=== PATIENT | male | born 1955 | race Caucasian/White ===

== ENCOUNTER → 2020-01-11 | Outpatient (CLI) | payer OTHER ==
[~2020-01-11] MED LIST: INHALER; MASOPHEN325 MG PO
== END ==
LOC: LAB 15:07
PROVIDERS: ATTEND Nurse Practitioner
DX: U07.1 COVID-19 (principal)

== ENCOUNTER 2020-01-18 00:22 | Inpatient (IN) | payer OTHER ==
[~2020-01-18] VITALS: Ht 172.7 cm; Wt 74.4 kg
[2020-01-18 00:23] VITALS: BP 111/73
[2020-01-18] MEDS ORDERED: MASOPHEN325 MG PO (00:30)
[2020-01-18] MEDS ORDERED: INHALER (00:30)
[2020-01-18 00:56] LABS: BE(vivo) -0.5 mmol/L (-2 to +3); HCO3 21.4 mmol/L (22.0-26.0); PCO2 28.4 mmHg (35.0-45.0); PO2 57.1 mmHg (80.0-100.0); pH 7.495 (7.360-7.450); sO2 92.3 % (92.0-98.0)
[2020-01-18 01:56] LABS: ANION GAP 10 mmol/L (7-16); BUN 22 mg/dL (7-18); CALCIUM 8.9 mg/dL (8.5-10.1); CHLORIDE 98 mmol/L (98-107); CO2 26 mmol/L (21-32); CREATININE 1.2 mg/dL (0.7-1.3); GLUCOSE 111 mg/dL (74-106); POTASSIUM 4.3 mmol/L (3.5-5.1); SODIUM 134 mmol/L (136-145)
[2020-01-18 01:59] LABS: ABSOLUTE NEUTROPHILS 11.9 thou/uL (1.4-8.2); BASOPHILS 0.1 % (0.0-2.0); HEMATOCRIT 41.5 % (42.0-52.0); HEMOGLOBIN 13.9 gm/dL (14.0-18.0); LYMPHOCYTES 1.8 % (24.0-44.0); MCH 31.6 pg (26.0-34.0); MCHC 33.5 g/dL (28.0-37.0); MCV 94.3 fL (80.0-100.0); MONOCYTES 2.2 % (1.0-8.0); PLATELET COUNT 254 thou/uL (150-400); POLYS 95.9 % (36.0-66.0); RDW 13.6 % (10.5-14.5); WBC 12.4 thou/uL (4.0-11.0)
[2020-01-18 02:04] LABS: APTT 33.4 Seconds (24.5-32.8); PROTIME 10.7 Seconds (9.3-11.4)
[2020-01-18 02:06] LABS: ALBUMIN 2.7 g/dL (3.4-5.0); SGOT 52 U/L (15-37); SGPT 52 U/L (30-65); TOTAL BILIRUBIN 1.1 mg/dL (0.2-1.0); TROPONIN-I <0.06 ng/mL (<0.06)
[2020-01-18 03:01] VITALS: BP 111/73
[2020-01-18 04:37] VITALS: BP 111/73
--- NOTE | 2020-01-18 07:00 | NUR ---
ASSUMED CARE OF PT FROM ER AT 0430HRS. PT AOX4 AND LETS NEEDS BE KNOWN. FALL PRECAUTION IN PLACE. PT WAS ORIENTED TO THE ROOM AND UNIT. PT WAS ABLE TO ANSWER ALL ADMISSION RELATED QUESTIONS AND PROVIDE VERBAL CONSENT. PT RUNS SR/ST ON TELE. PT ON HIGH FLOW NC AND SATS 95%. VSS AND NO S/S OF ACUTE DISTRESS. ORDERS RECEIVED AND STARTED. WILL CONTINUE TO MONITOR.
[2020-01-18 09:03] VITALS: BP 132/75
--- NOTE | 2020-01-18 12:12 | NUR ---
Patient admits with SOA/COVID positive . Patient and live in [place]. Patient commutes for work to [place]. Patient was home for holiday and both he and tested positive for COVID. 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 reports patients PCP is Dr Lukas Bustos [facility] in [place], p f. Updated face sheet as phone numbers were not accurate. wanted son Arcadio added [phone]. Gave Rn PCP information if needed past medical hx information. Patient currently on high liter flow of oxygen. reports her PCP is Dr Rodriguez. Casemgt following for dc planning.
[2020-01-18 13:11] VITALS: BP 146/73
--- NOTE | 2020-01-18 17:12 | NUR ---
RN ASSUMED PT'S CARE AT 0700AM, PT IS A&OX3, PT NEEDS HIGH FLOW H2 45L/MIN TO KEEP O2 >91%,PT STARTS FIRST DOSE IV REMDESIVIR AND IV ABX, DR CAT AND CARLOS A HAVE CONSULT, DR LIVINGSTON HAS SEEING PT, PT'S O2SAT HAS DECREASE WITH ACTIVITIES, RN HAS UPDATED PT'S INFORMATION .
[2020-01-18 20:52] VITALS: BP 128/78
[2020-01-19] VITALS (7 sets, daily range): BP systolic 115–137; BP diastolic 58–84
--- NOTE | 2020-01-19 01:23 | NUR ---
PT ALERT AND ORIENTED X4. VSS LOW GRADE TEMPS 100.3. SATS 93% CURRENTLY ON OPTIFLO. MRSA SAMPLE SENT TO LAB. T&C DONE FOR CONVALESENT PLASMA. INFORMED PT OF NEED FOR SPUTUM AND URINE SAMPLE. PT IS RESTING QUIETLY PRSENTLY RR 24. WILL CONTINUE TO MONITOR PT FOR CHANGES.
[2020-01-19 04:17] LABS: URINE BILIRUBIN NEGATIVE (Negative); URINE BLOOD NEGATIVE (Negative); URINE CLARITY CLEAR; URINE COLOR YELLOW; URINE GLUCOSE-RANDOM* NEGATIVE (Negative); URINE KETONES NEGATIVE (Negative); URINE LEUKOCYTES-REFLEX TRACE (Negative); URINE NITRITE-REFLEX NEGATIVE (Negative); URINE PROTEIN (DIPSTICK) TRACE (Negative); URINE UROBILINOGEN 0.2 E.U./dl (0.2-1.0)
[2020-01-19 04:38] LABS: HEMATOCRIT 42.7 % (42.0-52.0); HEMOGLOBIN 14.6 gm/dL (14.0-18.0); MCH 32.3 pg (26.0-34.0); MCHC 34.1 g/dL (28.0-37.0); MCV 94.8 fL (80.0-100.0); RBC 4.51 mil/uL (4.50-6.00); RDW 13.8 % (10.5-14.5); WBC 10.7 thou/uL (4.0-11.0)
[2020-01-19 04:39] LABS: PROTIME 10.5 Seconds (9.3-11.4)
[2020-01-19 04:44] LABS: FIBRINOGEN 611.5 mg/dL (210-360)
[2020-01-19 04:52] LABS: ALBUMIN 2.5 g/dL (3.4-5.0); CALCIUM 8.9 mg/dL (8.5-10.1); DIRECT BILIRUBIN 0.2 mg/dL (<0.1-0.2); PHOSPHORUS 2.9 mg/dL (2.5-4.9); POTASSIUM 3.8 mmol/L (3.5-5.1); TOTAL BILIRUBIN 0.6 mg/dL (0.2-1.0)
--- NOTE | 2020-01-19 06:50 | NUR ---
PT VERY ANXIOUS LAST NIGHT. PT'S SON CALLED AT DESK AND STATED HIS MOTHER SAID HIS DAD WAS GOING TO BE INTUBATED. EXPLAINED TO FAMILY THIS WAS A POSSIBILITY BUT PT WAS MAINTAINING SATS 93-94 ON LF 60 AND FIO2 95% ON OPTIFLO. RT CAME TO TALK WITH PT. PT STATED IT WAS MORE DIFFICULT FOR HIM TO BREATHE TONIGHT. PT REFUSED TO BE PLACED ON BIPAP FOR REST. TYLENOL GIVEN FOR GENERALIZED DISCOMFORT. PT SLEPT SHORTLY AFTER. CONVALESENT PLASMA STARTED. NO REACTION NOTED PRESENTLY.
--- NOTE | 2020-01-19 16:35 | NUR ---
RN ASSUMED PT'S CARE AT 0700AM, PT IS A&OX3, BUT PT IS ANXIETY AT TIME, PT WAS ON HIGH - FLOW O2 60L/MIN/NC TO KEEP 02SAT AT 92%, BUT PT HAS DESAT AT 84-88% WITH ACTIVIES, SO PT STARTS BIPAP WITH O2 100% AT 1540PM TO KEEP O2SAT 93-96%, PT'S SOB HAS IMPROVED, PT IS CONTINUING IV ABX AND REMDESIVIR, RN HAS UPDATED PT'S IMFORMATION. WE WILL KEEP EYE ON THE PT.
--- NOTE | 2020-01-20 00:30 | NUR ---
PT ALERT AND ORIENTED X4. VSS LOW GRADE TEMPS BETTER THAN YESTERDAY. LUNGS SOUND DIMINISHED. RT 24-28 OCCASSIONALLY WILL DESAT T0 89% IF BIPAP OFF FOR MEDS OR ORAL CARE. TYLENOL GIVEN FOR GENERALIZED DISCOMFORT. PT STATES HE'S FELLING BETTER WITH BIBPAP. SATS 93-96% ON BIPAP WITH 100% FIO2. WILL CONTINUE TO MONITOR PT FOR CHANGES.
[2020-01-20 04:54] LABS: HEMATOCRIT 42.8 % (42.0-52.0); HEMOGLOBIN 14.2 gm/dL (14.0-18.0); MCH 31.6 pg (26.0-34.0); MCHC 33.2 g/dL (28.0-37.0); RBC 4.51 mil/uL (4.50-6.00); RDW 13.8 % (10.5-14.5); WBC 12.1 thou/uL (4.0-11.0)
[2020-01-20 05:02] LABS: ALBUMIN 2.5 g/dL (3.4-5.0); CALCIUM 8.9 mg/dL (8.5-10.1); CREATININE 0.9 mg/dL (0.7-1.3); DIRECT BILIRUBIN 0.2 mg/dL (<0.1-0.2); PHOSPHORUS 2.6 mg/dL (2.5-4.9); POTASSIUM 3.8 mmol/L (3.5-5.1); TOTAL BILIRUBIN 0.6 mg/dL (0.2-1.0); TOTAL PROTEIN 6.9 g/dL (6.4-8.2)
[2020-01-20 05:12] VITALS: BP 132/87
--- NOTE | 2020-01-20 06:39 | NUR ---
VSS AFEBRILE THIS AM. SATS 94% ON BIPAP DESATS TO 70'S WITHOUT BIPAP WHILE DOING ORAL CARE OR PT BLOWING NOSE ETC. PT STATED HE IS FEELING BETTER. PROGRESSING SLOWLY TOWARDS D/C GOALS.
[2020-01-20 09:00] VITALS: BP 128/75
[2020-01-20 12:43] VITALS: BP 119/72
[2020-01-20 16:46] VITALS: BP 112/72
[2020-01-20 17:19] VITALS: BP 112/72
--- NOTE | 2020-01-20 17:54 | NUR ---
RN ASSUMED PT'S CARE AT 0700AM, PT IS A&OX3, PT IS CONTINUING IV ABX, PT IS OF BIPAP ABOT 4.5 HR ,PT IS ON HIGH-FLOW O2 60L/NC 93% TO KEEP O2 SAT ABOUT 92%, BUT PT IS DESAT WITH PT'S ACTIVITIES, PT IS BACK TO BIPAP AT 1700PM, PT HAS ANXIETY AT TIME, PT'S VS ARE STABLE, PT GETS UP TO BSC WITH ASSIST, PT DENIES PAIN AND N/V AT THIS TIME.
[2020-01-20 21:31] VITALS: BP 124/75
[2020-01-21 01:41] VITALS: BP 117/56
[2020-01-21 04:34] VITALS: BP 114/58
[2020-01-21 05:00] LABS: INR 1.1; PROTIME 11.4 Seconds (9.3-11.4)
[2020-01-21 05:05] LABS: FIBRINOGEN 479.4 mg/dL (210-360)
[2020-01-21 05:16] LABS: ABSOLUTE NEUTROPHILS 10.2 thou/uL (1.4-8.2); BASOPHILS 0.1 % (0.0-2.0); HEMATOCRIT 41.4 % (42.0-52.0); HEMOGLOBIN 13.5 gm/dL (14.0-18.0); LYMPHOCYTES 2.1 % (24.0-44.0); MCH 31.2 pg (26.0-34.0); MCHC 32.7 g/dL (28.0-37.0); MCV 95.5 fL (80.0-100.0); MONOCYTES 7.8 % (1.0-8.0); PLATELET COUNT 344 thou/uL (150-400); RBC 4.34 mil/uL (4.50-6.00); RDW 13.9 % (10.5-14.5); WBC 11.3 thou/uL (4.0-11.0)
[2020-01-21 05:33] LABS: ALBUMIN 2.5 g/dL (3.4-5.0); CALCIUM 8.6 mg/dL (8.5-10.1); DIRECT BILIRUBIN 0.2 mg/dL (<0.1-0.2); POTASSIUM 4.3 mmol/L (3.5-5.1); TOTAL BILIRUBIN 0.6 mg/dL (0.2-1.0); TOTAL PROTEIN 6.5 g/dL (6.4-8.2)
--- NOTE | 2020-01-21 07:19 | NUR ---
Received pt. on BIPAP at 100% at beginning of shift.He has several questions as well as son that has been addressed. Reassurance given .Dr. Robbie Dominguez also spoke with pt. He gets anxious and stayed awake till late. Encouraged prone position and explained importance. He did agree to it and slept fair. Maintaining O2 sat in the mid 90's when relax then low 90's when awake. Resp rate 24 then 28 when anxious. He gets short of breath with exertion and desats easily.Cont. on. enhanced precaution , afebrile. Son called last night to get an update. Will cont. to monitor.
[2020-01-21 09:04] VITALS: BP 116/70
--- NOTE | 2020-01-21 14:26 | NUR ---
SW reviewed chart and spoke with nursing and attending physician. Pt remains in Enhanced Isolation due to COVID-19. Pt is afebrile and requiring bipap support/optiflow. Pt is on IV abx and IV steroids. Completing course of Remdesivir. Pt will need therapy evals ordered when able to participate. SW is following to assist as needed with discharge planning.
[2020-01-21 15:49] VITALS: BP 140/86
[2020-01-21 20:30] VITALS: BP 139/81
[2020-01-22 04:30] VITALS: BP 136/83
[2020-01-22 05:58] LABS: ALBUMIN 2.4 g/dL (3.4-5.0); CALCIUM 8.4 mg/dL (8.5-10.1); CREATININE 0.9 mg/dL (0.7-1.3); DIRECT BILIRUBIN 0.3 mg/dL (<0.1-0.2); PHOSPHORUS 3.6 mg/dL (2.5-4.9); POTASSIUM 4.5 mmol/L (3.5-5.1); TOTAL BILIRUBIN 0.9 mg/dL (0.2-1.0); TOTAL PROTEIN 6.4 g/dL (6.4-8.2)
--- NOTE | 2020-01-22 06:06 | NUR ---
Pt. requested med to help him rest and settle down. Tylenol given for generalized discomfort and he stated this am he got some sleep. Maintaining O2 sat in the mid to upper 90's on BIPAP at 90% FIO2. He does get short of beath with exertion/. Respiratory rate this am 20/min at rest. Cont. on enhanced precaution , max temp 99 axillary this am. Voiding per urinal.
[2020-01-22 08:02] VITALS: BP 146/92
[2020-01-22 11:47] VITALS: BP 110/59
--- NOTE | 2020-01-22 13:21 | NUR ---
SW reviewed chart and spoke with nursing. Pt remains in Enhanced Isolation due to COVID-19. Pt is afebrile and on bipap/optiflow support. Pt is on IV abx and IV steroids. Pt to complete course of Remdesivir today. Pt able to get up to BSC with assistance. Pt will need therapy evals when able to participate. SW is following to assist as needed with discharge planning.
[2020-01-22 15:41] VITALS: BP 144/123
[2020-01-22 21:22] VITALS: BP 101/65
[2020-01-23] VITALS (17 sets, daily range): BP systolic 93–142; BP diastolic 56–79
--- NOTE | 2020-01-23 05:54 | NUR ---
Received pt. on Optiflow at shift change , desatting in the 80's and tachypneic. RT notified and put him back on BIPAP at 95%. He recovered and has maintained O2 sat greater than 90% up to 99% once he started relaxing. He also maintained prone position most of the night. He slept intermittently during the night. ST initially per tele monitor then SR most of the night once he's back on a BIPAP. No further episode of tachypnea while on BIPAP. Cont. on enhanced precaution, afebrile. Voided per urinal. Will continue to monitor.
[2020-01-23 06:09] LABS: ABSOLUTE NEUTROPHILS 13.5 thou/uL (1.4-8.2); BASOPHILS 0.9 % (0.0-2.0); HEMATOCRIT 40.9 % (42.0-52.0); HEMOGLOBIN 13.5 gm/dL (14.0-18.0); LYMPHOCYTES 1.9 % (24.0-44.0); MCH 31.5 pg (26.0-34.0); MCV 95.5 fL (80.0-100.0); MONOCYTES 1.7 % (1.0-8.0); PLATELET COUNT 345 thou/uL (150-400); POLYS 95.5 % (36.0-66.0); RBC 4.28 mil/uL (4.50-6.00); RDW 13.3 % (10.5-14.5); WBC 14.1 thou/uL (4.0-11.0)
[2020-01-23 06:33] LABS: INR 1.1; PROTIME 11.5 Seconds (9.3-11.4)
[2020-01-23 06:38] LABS: FIBRINOGEN 448.3 mg/dL (210-360)
[2020-01-23 06:53] LABS: ALBUMIN 2.2 g/dL (3.4-5.0); CALCIUM 8.3 mg/dL (8.5-10.1); CREATININE 1.1 mg/dL (0.7-1.3); POTASSIUM 4.5 mmol/L (3.5-5.1); TOTAL BILIRUBIN 0.7 mg/dL (0.2-1.0); TOTAL PROTEIN 5.7 g/dL (6.4-8.2)
--- NOTE | 2020-01-23 13:36 | NUR ---
VAT CONSULTED FOR A PICC/CL FOR THIS PT. AFTER EXPLAINATION OF RISKS AND BENEFITS OF THE LINE THE PT WANTS TO THINK ABOUT IT AND GET BACK WITH HIS NURSE. A 22G PLACED IN LT FOREAM TO GET IV MEDS UNTIL HE MAKES HIS DECISION.
--- NOTE | 2020-01-23 15:44 | NUR ---
SW reviewed chart and spoke with nursing and attending physician. Pt remains in Enhanced Isolation due to COVID-19. Pt is afebrile and requiring bipap/optiflow. Pt is on IV abx and IV steroids. Pt to have additional doses of Remdesivir. Therapy evals to be ordered when pt is able to participate. SW is following to assist as needed with discharge planning.
--- NOTE | 2020-01-23 19:00 | NUR ---
PT ARRIVED TO UNIT APPROX 1830 BY 3W STAFF. PT ALERT AND ORIENTED, VSS, O2 SATS WNL ON 50L OPTIFLOW @88%. DENIES SOB. PT ENCOURAGED TO COUGH DEEP BREATHE PERIODICALLY. DENIES NEEDS AT THIS TIME. WILL CONT TO MONITOR AND FOLLOW POC. REPORT PASSED ON TO REINALDO ANNE
--- NOTE | 2020-01-23 22:08 | NUR ---
spoke with tia regarding status update. answered questions
[2020-01-24] VITALS (33 sets, daily range): BP systolic 89–146; BP diastolic 47–78
[2020-01-24 06:11] LABS: ALBUMIN 2.1 g/dL (3.4-5.0); CALCIUM 8.4 mg/dL (8.5-10.1); CREATININE 0.8 mg/dL (0.7-1.3); DIRECT BILIRUBIN 0.2 mg/dL (<0.1-0.2); PHOSPHORUS 3.2 mg/dL (2.5-4.9); TOTAL BILIRUBIN 0.8 mg/dL (0.2-1.0); TOTAL PROTEIN 5.7 g/dL (6.4-8.2)
--- NOTE | 2020-01-24 06:46 | NUR ---
PT RESTING QUIETLY FOR MOST OF SHIFT, SELF PRONING ON BIPAP. UP TO COMMODE XSTANDBY ASSIST WITHOUT INCIDENT.
--- NOTE | 2020-01-24 09:52 | NUR ---
ASSUMED CARE OF THE PT AT 0700. DR. SANTOS AT BEDSIDE AT 0830 NO NEW ORDERS GIVEN.
--- NOTE | 2020-01-24 16:12 | NUR ---
VAT CONSULTED FOR PICC PLACEMENT YESTERDAY. PT INITIALLY REFUSED, BUT NOW AGREEABLE. RIGHT UPPER BASILIC 5FR TL PICC PLACED, CHARTED. PT TOLERATED WELL. TRIMMED 46CM AND 2CM EXTERNAL. CXR FOR TIP LOCATION.
--- NOTE | 2020-01-24 17:35 | NUR ---
RADIOLOGY REPORT: PICC TIP OVER SVC. RELEASED FOR USE.
[2020-01-25] VITALS (36 sets, daily range): BP systolic 83–152; BP diastolic 49–85
[2020-01-25 02:27] LABS: CREATININE 0.9 mg/dL (0.7-1.3); DIRECT BILIRUBIN 0.2 mg/dL (<0.1-0.2); POTASSIUM 4.9 mmol/L (3.5-5.1); TOTAL BILIRUBIN 0.6 mg/dL (0.2-1.0); TOTAL PROTEIN 5.6 g/dL (6.4-8.2)
--- NOTE | 2020-01-25 03:15 | NUR ---
PATIENT HAS BEEN HAVING INCREASED DIFFICULTY MAINTAINING HIS OXYGEN SATS. I SPOKE WITH RESPIRATORY ABOUT POSSIBLE NEB. PATIENT DOESN'T HAVE ANY NEBS AND WHEN HE IS TAKEN OFF BIPAP HIS OXYGEN DROPS VERY QUICKLY. OXYGEN HAS BEEN STAYING IN THE MID TO HIGH 80S. DR SANTOS HAS BEEN PAGED TWICE WITH NO CALL BACKS OF THIS NOTE.
--- NOTE | 2020-01-25 10:27 | NUR ---
Nutrition: pt admit with COVID +, SOA. Seen for LOS. Has required BIPAP which is off for meals. Pt also self proning as tolerated. PMH reviewed. no wt hx. BMI 26.7. BG controlled. 01/23 BM. Suboptimal inake at 25-50% of meals per documentation however has glucerna ordered BID which nsg states he is drinking. Prefers strawberry-will adjust flavor preferences. Nsg to contact RD if any food preferences are communicated. Place as low risk with interventions in place.
--- NOTE | 2020-01-25 18:17 | NUR ---
PT SITTING UP ON BEDSIDE COMMODE(PER PT PREFERENCE) FOR SEVERAL HOURS TODAY. PROGRESSIVELY IMPROVING 02 SATS. DID DESAT DOWN TO 72% WHEN GETTING BACK TO BED HOWEVER IT IMPROVED WITHIN MINUTES TO LOW TO MID 90'S. SA02 UP TO 98% AT BEST. ON BIPAP WHEN IN BED, THEN OPTIFLOW WHEN UP IN CHAIR.
[2020-01-26] VITALS (33 sets, daily range): BP systolic 88–122; BP diastolic 42–78
[2020-01-26 05:47] LABS: ABSOLUTE NEUTROPHILS 11.8 thou/uL (1.4-8.2); BASOPHILS 0.1 % (0.0-2.0); HEMATOCRIT 39.5 % (42.0-52.0); HEMOGLOBIN 12.9 gm/dL (14.0-18.0); LYMPHOCYTES 1.1 % (24.0-44.0); MCH 31.3 pg (26.0-34.0); MCHC 32.7 g/dL (28.0-37.0); MCV 95.7 fL (80.0-100.0); MONOCYTES 1.6 % (1.0-8.0); POLYS 97.2 % (36.0-66.0); RBC 4.12 mil/uL (4.50-6.00); RDW 13.7 % (10.5-14.5); WBC 12.2 thou/uL (4.0-11.0)
[2020-01-26 05:53] LABS: FIBRINOGEN 300.6 mg/dL (210-360); INR 1.2; PLATELET COUNT 205 thou/uL (150-400)
--- NOTE | 2020-01-26 06:14 | NUR ---
This RN to bedside at 1900. Patient in chair during shift change on optiflow. Once patient got into bed to sleep, desats easily. This RN placed nurse on bipap 100%. Patient remained on this throughout night with sats 90's- 95's. Alert and oriented, VSS and adequate urine output. Progressing towards goals.
--- NOTE | 2020-01-26 10:00 | NUR ---
up in chair with one assist, pt incrementally getting out of bed and into chair with brief rest periods inbetween. lowest sa02 was 90% briefly. while on bedside commode, chlorexidine bath provided. cough slightly moist but nonproductive. progressing evidenced by maintaining sa02 with incremental activity and frequent brief rest periods.
[2020-01-26 13:52] LABS: CALCIUM 8.4 mg/dL (8.5-10.1); CREATININE 0.9 mg/dL (0.7-1.3); DIRECT BILIRUBIN 0.2 mg/dL (<0.1-0.2); PHOSPHORUS 3.5 mg/dL (2.6-4.7); POTASSIUM 5.1 mmol/L (3.5-5.1); TOTAL BILIRUBIN 0.7 mg/dL (0.2-1.0); TOTAL PROTEIN 5.5 g/dL (6.4-8.2)
[2020-01-27] VITALS (31 sets, daily range): BP systolic 82–123; BP diastolic 47–70
--- NOTE | 2020-01-27 04:42 | NUR ---
CARE ASSUMED 1900. PT ALERT AND ORIENTED. PT WAS IN THE CHAIR AT SHIFT CHANGE, ASSIST X 1 TO THE BED. PT GET EXTREMELY SOB, WITH 02 SATs DROPPING IN THE 70s. TAKE PATIENT A WHILE TO RECOVER FROM THE DISTRESS. ON BIPAP WHOLE NIGHT, 02 SATs > 95% MOST OF THE TIME. PT DENIES PAIN, NAUSEA , VOMITING OR CHEST DISCOMFORT. WILL CONTINUE TO MONITOR AND FOLLOW POC.
[2020-01-27 05:04] LABS: ALBUMIN 1.7 g/dL (3.4-5.0); CALCIUM 7.9 mg/dL (8.5-10.1); CREATININE 0.8 mg/dL (0.7-1.3); DIRECT BILIRUBIN 0.1 mg/dL (<0.1-0.2); PHOSPHORUS 3.2 mg/dL (2.6-4.7); POTASSIUM 4.7 mmol/L (3.5-5.1); TOTAL BILIRUBIN 0.7 mg/dL (0.2-1.0)
--- NOTE | 2020-01-27 18:21 | NUR ---
PT SPENT MOST OF THE DAY UP IN THE CHAIR ON OPTIFLOW. HAS CONSENTED TO USING BIPAP AT NIGHT WITH SLEEP. PT DYSPNEIC W/ ACTIVITY BUT RECOVERY TIME SEEMS SHORTER TODAY. PT'S APPETITE GOOD. PT HAD TWO BM'S TODAY, AND URINE OUTPUT HAS BEEN ADEQUATE WITH ADEQUATE FLUID INTAKE. PT HAS SPOKEN TO FAMILY MULTIPLE TIMES ON HIS CELL PHONE TODAY. PT HAS REALISTIC GOALS AND UNDERSTANDS TO SPACE ACTIVITY AND REST PERIODS. PT OVERALL PROGRESSING TOWARD GOALS.
[2020-01-28] VITALS (31 sets, daily range): BP systolic 85–129; BP diastolic 49–74
[2020-01-28 05:37] LABS: HEMATOCRIT 39.5 % (42.0-52.0); HEMOGLOBIN 13.2 gm/dL (14.0-18.0); MCH 31.6 pg (26.0-34.0); MCHC 33.4 g/dL (28.0-37.0); MCV 94.7 fL (80.0-100.0); RBC 4.17 mil/uL (4.50-6.00); RDW 14.1 % (10.5-14.5)
[2020-01-28 05:41] LABS: CREATININE 0.8 mg/dL (0.7-1.3); POTASSIUM 4.4 mmol/L (3.5-5.1)
--- NOTE | 2020-01-28 07:53 | EKG ---
[place] [address] [facility] [facility] [place] [address] ELECTROCARDIOGRAM REPORT Name: BENIGNO PIERCE Room #: 243-P ADM IN M.R.#: [id number] Admission: 01/18/20 Attend Phys: Mega Rodriguez MD Discharge: Date of : 59 Report #: [id number] [facility] ED Test Date: 2020-01-18 Test Time: 03:20:46 Pat Name: BENIGNO PIERCE Department: Room: 364 Gender: M Technology Auditor: ASAD : 1955 Requested By: Gadiel Frederick Order Number: [id number] MD: Pranav Oneill Measurements Intervals Harvey Rate: 91 P: 56 OR: 148 QRS: -60 QRSD: 94 T: 27 QT: 360 QTc: 443 Interpretive Statements Sinus rhythm Abnormal R-wave progression, late transition Baseline wander in lead(s) V1,V6 No previous ECG available for comparison Electronically Signed On 01-18-2020 15:57:17 CLINICAL QUALITY ASSURANCE SPECIALIST by Pranav Oneill [email or web address] <ELECTRONICALLY SIGNED> By: Pranav Oneill MD, [facility] 01/18/20 1557 0320 9 Pranav Oneill MD, FACC /EPI
--- NOTE | 2020-01-28 09:14 | NUR ---
ASSUMED CARE OF PATIENT AT 0700. DR. SANTOS AT BEDSIDE AT 0830, NO NEW ORDERS GIVEN. PATIENT IS ANXIOUS AND STRESSED DUE TO THE FACT THAT HIS FAMILY IS STRESSING. HE IS ALSO WORRIED ABOUT TAKING A SLEEPING MEDICATION TONIGHT AND WEARING THE BIPAP. HE IS CONCERNED THAT IT WILL DEHYDRATE HIM TOO MUCH. I ASSURED HIM THAT HE WILL BE OK AND THAT HE DOES HAVE IV FLUIDS RUNNING. HE IS VERY PARTICULAR AND WILL TELL YOU HOW HE LIKES TO HAVE HIS ROOM SET UP.
--- NOTE | 2020-01-28 16:05 | NUR ---
Case discussed with the care team. Pt remains in the ICU on optiflow during the daytime and bipap at [facility]. Pt getting iv atb/steriods and additional doses of remdesivir. Pt is able to talk with his and son via his cell phone. Dc needs and timeframe are uncertain. Will continue to follow. Pt up as tolerated to the chair.
[2020-01-29] VITALS (16 sets, daily range): BP systolic 81–116; BP diastolic 47–67
--- NOTE | 2020-01-29 11:30 | NUR ---
0730-DR. LIVINGSTON IN TO SEE.--VW 1000-LONG TIME SPENT (~1HR) W PT AT BEDSIDE.PT VERY ANXIOUS, CONCERNED OVER TM'S.VERY FEARFUL OF BEING PUT ON THE VENT B/C HE WILL LOSE CONTROL OF THE SITUATION.STATES HE HAS TO THINK THINGS THRU, HAVE CONTROL OF HIS SURROUNDINGS AND BE ABLE TO WORK ON HIS BREATHING AND HIS GOALS TO ACHIEVE THIS.LENGTHY DISCUSSION AND ENC PT TO HAVE CONVERSATION W .CLOSE TO 2 HRS SPENT IN ROOM W PT.PT TO TOILET,HAD A BM BUT INSISTED ON SITTING THERE PROLONGED AMT OF TIME.PT TAKES HIS MEDS A CERTAIN WAY, NOT ALL AT THE SAME TIME.PT W HACKING DRY COUGH. PT IS RECOVERING A LITTLE MORE QUICKLY p ACTIVITY.DID DESAT TO .86% BUT WAS DESATTING LAST WEEK TO LOW 70'S W ACTIVITY.PT SPACING OUT HIS ACTIVITIES.--VW
[2020-01-30] VITALS (8 sets, daily range): BP systolic 82–103; BP diastolic 46–67
[2020-01-30 06:18] LABS: HEMATOCRIT 39.7 % (42.0-52.0); HEMOGLOBIN 13.2 gm/dL (14.0-18.0); MCH 31.5 pg (26.0-34.0); MCHC 33.2 g/dL (28.0-37.0); MCV 94.8 fL (80.0-100.0); RBC 4.19 mil/uL (4.50-6.00); RDW 13.7 % (10.5-14.5); WBC 12.7 thou/uL (4.0-11.0)
[2020-01-30 06:33] LABS: CREATININE 0.8 mg/dL (0.7-1.3); POTASSIUM 4.7 mmol/L (3.5-5.1)
--- NOTE | 2020-01-30 09:52 | NUR ---
0948- Patients called for an update on patient status, spoke with Tamiko Moreland. Update was given, no further questions at this time.
--- NOTE | 2020-01-30 18:26 | NUR ---
1824- REPORT CALLED TO THOMAS ANNE ON . NURSE INFORMED PATIENT AND HIS SPOUSE OF HIS TRANSFER TO [facility]. QUESTIONS WERE ANSWERED.
--- NOTE | 2020-01-30 20:21 | NUR ---
Patient transfered to room 359 from ICU 243. He had his phone, ceramics engineer, reading glasses, chocolates, gatorade, and red bag with other belongings such as toothbrush, etc. He expressed he had all his belongings and that he left his stuff at home. Cabinets were emptied and two bags of clothes were taken to his new room with him. He transported with monitor, oxygenation remained in the 90% range. He denied pain. When he got to the new room, he expressed he was grateful for the ICU care. He was set up in the chair per his request and scraper loader operator was in room when RN left. RT was bringing continous pulse oximetry. FIRST AID TEACHER was shaving his chest hair for a better connection with the director business intelligence.
[2020-01-31 03:49] VITALS: BP 97/57
--- NOTE | 2020-01-31 05:52 | NUR ---
PT ARRIVED AT APPROXIMATELY 2050HRS LAST NIGHT, PLACED IN ROOM 359. PT TRANSFERED FROM ICU, HAS OPTIFLO IN PLACE THROUGHOUT THE NIGHT. PT FOCUSED "ON MY NUMBERS." PULSE OXIMETER TURNED TO WHERE PT CAN SEE DISPLAY AT ALL TIMES. LUNGS DIMINISHED WITH CRACKLES IN LEFT LOWER LOBE. NOTED O2 SATS ON OPTIFLO WHEN PT AT REST 94% AND DOES DROP TO 82% WITH ACTIVITY. PT COOPERATIVE WITH SPACING ACTIVITIES OUT WITH FREQ REST PERIODS TO RECOVER.
[2020-01-31 07:40] VITALS: BP 98/51
[2020-01-31 11:15] VITALS: BP 101/55
--- NOTE | 2020-01-31 13:14 | NUR ---
SW reviewed chart and spoke with nursing. Pt was transferred to 3W from ICU and remains in Enhanced Isolation due to COVID-19. Pt is afebrile and requiring optiflow. Pt is on IV steroids. PT/OT ordered today to evaluate pt for discharge needs. No weekend discharge planned. YUNIOR is following to assist as needed with discharge planning.
[2020-01-31 15:30] VITALS: BP 97/54
[2020-01-31 19:35] VITALS: BP 94/58
[2020-02-01 00:30] VITALS: BP 100/59
[2020-02-01 05:05] VITALS: BP 121/70
--- NOTE | 2020-02-01 05:20 | NUR ---
PT ALERT AND ORIENTED X4. ANXIOUS AT TIMES. VSS AFEBRILE. SAT 95% ON OPTIFLOW FIO2 80% AND 55LF. PT GETS SOA WITH EXERTION. PT REFUSED TO GO BACK TO BED TO SLEEP. HE STATED HE WANTED TO SLEEP IN CHAIR . FEET ELEVATED. HEAD PROPPED UP. DENIED PAIN. PRORESSING SLOWLY TOWARDS D/C GOALS. PT HAD NOSE BLEED X1 TONIGHT. NOTIFIED RT TO CHANGE HUNIDIFIED AIR BOTTLE. NO FURTHER NOSE BLEEDS NOTED TONIGHT.
[2020-02-01 08:59] VITALS: BP 105/68
[2020-02-01 13:08] VITALS: BP 90/56
--- NOTE | 2020-02-01 15:57 | NUR ---
RESTED IN CHAIR THROUGH THE DAY. RESPIRATIONS ARE NON LABORED. HE HAS NOT COMPLAINED OF PAIN. WILL CONT WITH PLAN OF CARE.
[2020-02-01 16:30] VITALS: BP 91/59
[2020-02-01 20:14] VITALS: BP 93/56
--- NOTE | 2020-02-02 04:43 | NUR ---
electively asked with help proning tonight. he had one small amount of red discharge from nasal passage after picking at his nose tonight. continues on the optiflow at 55 liters/ 80%. he is confortable with his breathing.
[2020-02-02 05:29] VITALS: BP 110/63
[2020-02-02 05:40] LABS: HEMATOCRIT 39.6 % (42.0-52.0); HEMOGLOBIN 13.2 gm/dL (14.0-18.0); MCH 32.1 pg (26.0-34.0); MCHC 33.4 g/dL (28.0-37.0); RBC 4.13 mil/uL (4.50-6.00); RDW 13.8 % (10.5-14.5); WBC 13.4 thou/uL (4.0-11.0)
[2020-02-02 05:54] LABS: CALCIUM 8.3 mg/dL (8.5-10.1); CREATININE 0.8 mg/dL (0.7-1.3); POTASSIUM 4.2 mmol/L (3.5-5.1)
[2020-02-02 09:02] VITALS: BP 93/61
[2020-02-02 15:27] VITALS: BP 92/61
[2020-02-02 22:02] VITALS: BP 106/70
--- NOTE | 2020-02-03 03:36 | NUR ---
PT LYING IN BED. VOIDING PER URINAL. DENIES PAIN. PT PLACED BACK ON OPTI FLOW DID NOT TOLERATE BIPAP. RESTING COMFORTABLY. NO NEEDS VOICED. CALL LIGHT WITHIN REACH. FREQUENT OBSERVATION.
[2020-02-03 05:29] VITALS: BP 112/68
[2020-02-03 06:22] LABS: ABSOLUTE NEUTROPHILS 8.7 thou/uL (1.4-8.2); BASOPHILS 0.1 % (0.0-2.0); EOSINOPHILS 1.1 % (0.0-3.0); HEMATOCRIT 36.8 % (42.0-52.0); HEMOGLOBIN 12.1 gm/dL (14.0-18.0); LYMPHOCYTES 4.3 % (24.0-44.0); MCH 31.4 pg (26.0-34.0); MCHC 32.9 g/dL (28.0-37.0); MCV 95.7 fL (80.0-100.0); MONOCYTES 3.1 % (1.0-8.0); PLATELET COUNT 144 thou/uL (150-400); POLYS 91.4 % (36.0-66.0); RBC 3.85 mil/uL (4.50-6.00); RDW 14.1 % (10.5-14.5); WBC 9.5 thou/uL (4.0-11.0)
[2020-02-03 06:42] LABS: CALCIUM 8.3 mg/dL (8.5-10.1); CREATININE 0.7 mg/dL (0.7-1.3); POTASSIUM 4.4 mmol/L (3.5-5.1)
[2020-02-03 08:14] VITALS: BP 107/56
[2020-02-03 11:21] VITALS: BP 91/58
[2020-02-03 16:29] VITALS: BP 109/62
--- NOTE | 2020-02-03 18:12 | NUR ---
PATIENT NOW SLEEPING AND RESPIRATIONS ARE EVEN NON LABORED. DOES NOT SEEM TO BE IN PAIN. WILL CONT WITH PLAN OF CARE.
[2020-02-03 22:24] VITALS: BP 103/71
--- NOTE | 2020-02-04 03:54 | NUR ---
PT LYING IN BED. VOIDING PER URINAL. DENIES PAIN. CONCERNED ABOUT SOME PRAYERS HIS MOTHER SENT HIM WHILE HE WAS IN ICU THAT HE THINKS HE LEFT DOWN THERE--WILL PASS ALONG TO DAYS. RESTING COMFORTABLY. CALL LIGHT WITHIN REACH. FREQUENT OBSERVATION.
[2020-02-04 06:35] VITALS: BP 97/62
[2020-02-04 07:22] LABS: CALCIUM 8.8 mg/dL (8.5-10.1); CREATININE 0.8 mg/dL (0.7-1.3); POTASSIUM 4.2 mmol/L (3.5-5.1)
[2020-02-04 08:22] VITALS: BP 97/64
[2020-02-04 11:20] VITALS: BP 90/59
--- NOTE | 2020-02-04 13:03 | NUR ---
Nutrition: Pt admitted with COVID +, SOA. Seen for LOS. Initially required BiPAP now on HFNC, 55L, FiO2 80%. Pt self proning as tolerated. Wt has fluctuated some since admission, currently within 5% of admit wt. PO intakes variable, 0-100%, no meals recorded since 01/31/20. Noted strawberry glucerna shakes ordered BID, pt drinking and enjoys. Pt remains low nutrition risk with current interventions in place.
--- NOTE | 2020-02-04 14:13 | NUR ---
SW reviewed chart and spoke with nursing. Pt remains in Enhanced Isolation due to COVID-19. Pt is afebrile and requiring optiflow. Pt is on IV steroids. Therapy is working with pt as pt can tolerate. SW spoke with pt via phone. Pt states he still feels weak and it takes him a while to recover after any kind of physical activity. SW explained role of SW to pt. Pt verbalized understanding. SW is following to assist as needed with discharge planning.
[2020-02-04 15:26] VITALS: BP 88/60
--- NOTE | 2020-02-04 19:39 | NUR ---
PATIENT UP ON RECLINER THIS AM. NO COMPLAINTS NOTED.
[2020-02-04 19:52] VITALS: BP 91/60
[2020-02-05 04:04] VITALS: BP 79/48
[2020-02-05 05:51] LABS: HEMATOCRIT 38.7 % (42.0-52.0); HEMOGLOBIN 12.8 gm/dL (14.0-18.0); MCH 31.9 pg (26.0-34.0); MCHC 33.1 g/dL (28.0-37.0); MCV 96.2 fL (80.0-100.0); RBC 4.03 mil/uL (4.50-6.00); RDW 13.9 % (10.5-14.5); WBC 8.9 thou/uL (4.0-11.0)
--- NOTE | 2020-02-05 06:13 | NUR ---
PT STAYED ON OPTIFLOW OVERNIGHT. TELE SHOWS PT SR/ST. BLOOD PRESSURE SOFT AND WILL BOLUS WITH 500ML NS X1. HOURLY ROUNDING.
[2020-02-05 06:15] LABS: CALCIUM 8.3 mg/dL (8.5-10.1); CREATININE 0.7 mg/dL (0.7-1.3)
[2020-02-05 07:49] VITALS: BP 101/62
[2020-02-05 11:34] VITALS: BP 83/52
[2020-02-05 15:10] VITALS: BP 96/60
--- NOTE | 2020-02-05 15:18 | NUR ---
YUNIOR reviewed chart and spoke with nursing. Pt remains in Enhanced Isolation due to COVID-19. Pt is afebrile and requiring optiflow. Pt is on IV steroids. Attending physician requested YUNIOR to start discussing discharge plans with pt and . Possible LTAC placement due to O2 needs. YUNIOR left voice message for Souleymane at [facility] ([phone]) to discuss discharge options: facilities. YUNIOR spoke with pt's , Ifrah, via phone. Lengthy discussion regarding pt's condition and discharge needs. Pt's states that she is working with pt's employer regarding his time off. Pt did not elect to have short or senior living disability. Pt's had questions regarding disability or COVID assistance. SW discussed referral to [facility]. Pt's is agreeable. 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 She would be agreeable with referrals to an LTAC or inpt acute rehab. YUNIOR explained that insurance will need to authorize post-acute plans. Eventual discharge plan is for pt to return home. Pt's requested YUNIOR contact Olimpia Crabtree at pt's employer: [phone]. YUNIOR spoke with Olimpia who states that pt's coverage will be through the [facility] Choice Plus Plan. Insurance will need to authorize post-acute needs. YUNIOR is following to assist as needed with discharge planning.
[2020-02-05 19:49] VITALS: BP 116/74
[2020-02-06 04:47] VITALS: BP 110/77
[2020-02-06 08:28] VITALS: BP 92/58
[2020-02-06 11:11] VITALS: BP 97/66
--- NOTE | 2020-02-06 15:38 | NUR ---
YUNIOR reviewed chart and spoke with nursing and attending physician. Pt remains in Enhanced Isolation due to COVID-19. Pt is afebrile and requiring optiflow. Pt is on IV steroids. YUNIOR spoke with Souleymane with pt's insurance regarding post-acute plans. YUNIOR provided verbal clinical udpate and discussed LTAC options for discharge. Per Souleymane, insurance will provide authorization for pt to go to an LTAC. All three area LTACs are in-network with pt's insurance. YUNIOR spoke with pt's via phone to provide update and discuss options. Preference is [facility]. YUNIOR faxed LTAC referral and spoke with [facility] liaisonTania. Awaiting input from [facility] at this time. YUNIOR is following to assist as needed with discharge planning.
[2020-02-06 15:51] VITALS: BP 96/60
[2020-02-06 19:51] VITALS: BP 101/59
[2020-02-07 04:15] VITALS: BP 108/70
[2020-02-07 06:21] LABS: HEMATOCRIT 36.1 % (42.0-52.0); HEMOGLOBIN 12.1 gm/dL (14.0-18.0); MCH 31.8 pg (26.0-34.0); MCHC 33.6 g/dL (28.0-37.0); MCV 94.9 fL (80.0-100.0); RBC 3.8 mil/uL (4.50-6.00); RDW 13.7 % (10.5-14.5); WBC 7.4 thou/uL (4.0-11.0)
--- NOTE | 2020-02-07 06:43 | NUR ---
ON OPTIFLOW.DENIES PAIN AND NEEDS.MONITOR SHOWS SINUS ARRYTHMIA.POC CONTINUED.
[2020-02-07 06:46] LABS: ALBUMIN 2.1 g/dL (3.4-5.0); CALCIUM 8.3 mg/dL (8.5-10.1); CREATININE 0.7 mg/dL (0.7-1.3); POTASSIUM 4.3 mmol/L (3.5-5.1); TOTAL BILIRUBIN 0.6 mg/dL (0.2-1.0); TOTAL PROTEIN 5.3 g/dL (6.4-8.2)
[2020-02-07 07:51] VITALS: BP 99/66
--- NOTE | 2020-02-07 08:53 | NUR ---
PT. ALERT AND REFUSING XANAX RIGHT NOW WANTS TO BE MORE AWAKE TODAY FOR PT/OT TODAY. PAIN MEDICATION FOR LOWER BACK PAIN FROM "BEING IN ONE SPOT A LONG TIME".
[2020-02-07 11:37] VITALS: BP 80/55
--- NOTE | 2020-02-07 15:17 | NUR ---
YUNIOR reviewed chart and spoke with nursing. Pt remains in Enhanced Isolation due to COVID-19. Pt is afebrile and requiring optiflow. Pt is on IV steroids. YUNIOR contacted [facility] liaison, who states they are able to accept pt from a clinical standpoint. Will need final insurance authorization. YUNIOR faxed copies of insurance cards to [facility] intake. YUNIOR spoke with pt via phone to discuss LTAC placement. Pt is agreeable and requests for info to be discussed with his . YUNIOR spoke with pt's via phone. YUNIOR informed of [facility]'s acceptance. No weekend discharge planned. Will need insurance authorization. [facility] states they can accommodate 40L of O2. YUNIOR updated attending physician. YUNIOR is following to assist as needed with discharge planning.
[2020-02-07 16:52] VITALS: BP 111/83
--- NOTE | 2020-02-07 17:03 | NUR ---
PT. HAS BEEN TACHYCARDIA MOST OF THE DAY WITH HEAR T RATE >100, WITH ACTIVITY HE BUMNPS UP TO 120'S, NO ECTOPY. DENIES SOB AND BLAMES I TON "ME BEING HARSHA ACTIVE NOW". aMBULATES HIMSELF IN THE ROOM AND BACK AND FORTH BETWEEN THE BED AND THE CHAIR. WILL CONTINUE TO MONITOR HEART RATE.
[2020-02-07 21:05] VITALS: BP 99/56
--- NOTE | 2020-02-08 03:18 | NUR ---
PT AOX4. PT DENIES PAIN. PT REPORTS SOB WITH EXERTION WHILE ON 57L O2 VIA OPTIFLOW. PT TOLERATING PO INTAKE OF FLUIDS AND HEART HEALTHY DIET. PT DENIES NAUSEA. PT VOIDING PER URINAL. PT RESTING IN BED THROUGHOUT SHIFT, FREQUENT REPOSITIONING ENCOURAGED, PT NOTED TO SHIFT INDEPENDENTLY WHILE IN BED. PT ENCOURAGED TO NOTIFY STAFF FOR ALL NEEDS, CALL LIGHT WITHIN REACH, BED ALARM ON, BED IN LOWEST POSITION, FREQUENT MONITORING WILL CONTINUE.
[2020-02-08 04:39] VITALS: BP 87/57
[2020-02-08 07:21] VITALS: BP 100/66
[2020-02-08 11:44] VITALS: BP 93/60
[2020-02-08 15:44] VITALS: BP 83/52
--- NOTE | 2020-02-08 18:27 | NUR ---
PATIENT RESTED IN BED THROUGH THE DAY. ALERT ORIENTED X4. PLEASANT WITH CARES. NO DECLINE IN STATUS NOTED AT THIS TIME. WILL CONT WITH PLAN OF CARE.
[2020-02-08 20:12] VITALS: BP 88/55
--- NOTE | 2020-02-08 23:06 | NUR ---
PT RESTING IN BED, OPTI FLOW INTACT. PT VERY HYPERTALKATIVE WITH RESPIRATORY AND NURSE. PT DISCUSSED THAT HE IS BLOWING AND DISLODGING THROUGH HIS DRY NOSE LARGE CLUMPS OF VIRUS AND IT IS IMPROVING HIS ABILITY TO BREATH. PT REPORTED SPRAYING NOSE WITH SALINE. LUNGS LOWER CRACKLES. PROVIDED HS SNACK. STEADY GAIT.
[2020-02-09 04:29] VITALS: BP 92/64
[2020-02-09 07:10] VITALS: BP 87/55
[2020-02-09 10:25] LABS: HEMATOCRIT 34.2 % (42.0-52.0); HEMOGLOBIN 11.5 gm/dL (14.0-18.0); MCHC 33.6 g/dL (28.0-37.0); MCV 95.2 fL (80.0-100.0); RBC 3.6 mil/uL (4.50-6.00); RDW 13.9 % (10.5-14.5); WBC 7.5 thou/uL (4.0-11.0)
[2020-02-09 10:47] LABS: ALBUMIN 2.3 g/dL (3.4-5.0); CALCIUM 8.5 mg/dL (8.5-10.1); CREATININE 0.6 mg/dL (0.7-1.3); POTASSIUM 3.2 mmol/L (3.5-5.1); TOTAL BILIRUBIN 0.8 mg/dL (0.2-1.0); TOTAL PROTEIN 5.6 g/dL (6.4-8.2)
[2020-02-09 11:19] VITALS: BP 85/55
[2020-02-09 15:44] VITALS: BP 92/61
--- NOTE | 2020-02-09 15:50 | NUR ---
assumed care of pt at 0700. pt aox4, mild resp distress, asking many questions about his medical condition. somewhat anxious. maintains spo2 on optiflow. hypotensive, bolus given per physician - no improvement in bp - pt currently asymptomatic. routine ct ordered of sinuses - discussed with RT - would require NRB and transport could bring risks - ID paged to clarify if scan could be done at later time - waiting absence management consultant back.
[2020-02-09 19:13] LABS: URINE BILIRUBIN NEGATIVE (Negative); URINE BLOOD NEGATIVE (Negative); URINE CLARITY CLEAR; URINE COLOR YELLOW; URINE GLUCOSE-RANDOM* NEGATIVE (Negative); URINE KETONES NEGATIVE (Negative); URINE LEUKOCYTES-REFLEX NEGATIVE (Negative); URINE NITRITE-REFLEX NEGATIVE (Negative); URINE PROTEIN (DIPSTICK) NEGATIVE (Negative); URINE SPECIFIC GRAVITY 1.015 (1.005-1.035); URINE UROBILINOGEN 0.2 E.U./dl (0.2-1.0)
[2020-02-09 19:31] VITALS: BP 98/58
--- NOTE | 2020-02-09 22:17 | NUR ---
PT WATCHING TV IN BED. PT CONTINUES WITH OPTIFLOW 02% DOWN TO 76. LUNGS WITH CRACKLES IN THE BASES AND COUGH. PT DECLINED HS SNACK. STEADY GAIT WITH INDEP TRANSFERS.
[2020-02-10 05:30] VITALS: BP 93/58
[2020-02-10 07:25] VITALS: BP 94/62
[2020-02-10 11:08] VITALS: BP 103/64
[2020-02-10 14:15] LABS: CALCIUM 9.2 mg/dL (8.5-10.1); CREATININE 0.7 mg/dL (0.7-1.3); POTASSIUM 3.6 mmol/L (3.5-5.1)
[2020-02-10 15:38] VITALS: BP 94/61
--- NOTE | 2020-02-10 20:10 | NUR ---
RN ASSUMED PT'S CARE AT 0700AM, PT IS A&OX3, PT IS ON OPT-FLOW O2 45L/MIN/NC AND O2 76% TO KEEP O2 SAT > 93%, BUT PT HAS SOB WITH ACTIVITIES, PT'S VS ARE STABLE AT DAY SHIFT.
[2020-02-10 20:13] VITALS: BP 106/58
[2020-02-11 04:17] VITALS: BP 96/63
--- NOTE | 2020-02-11 05:09 | NUR ---
PT MAKING SLOW PROGRESS TOWARDS GOALS. ON OPTIFLOW THROUGHOUT THE NIGHT AT 45L. NOTED LUNGS CTA WITH FINE CRACKLES IN BOTH BASES. O2 SATS OBERVED TO BE 94-95% WHILE AT REST.
[2020-02-11 07:43] VITALS: BP 104/64
[2020-02-11 11:26] VITALS: BP 97/59
--- NOTE | 2020-02-11 14:22 | NUR ---
SW reviewed chart and spoke with nursing and attending physician. Pt remains in Enhanced Isolation due to COVID-19. Pt is afebrile and on optiflow. Pt was able to be on 40-45L, but needed to have O2 increased with activity. SW updated [facility] liaison. YUNIOR spoke with pt's , Ifrah, via phone to provide update. SW discussed alternate LTAC options. Pt's states that their first choice is [facility]. SW updated attending physician. SW is following to assist as needed with discharge planning.
--- NOTE | 2020-02-11 14:36 | NUR ---
Pt admitted with COVID +, SOA, seen for LOS. Initially required BiPAP now on HFNC. Wt has fluctuated some since admit, presently down 13#, suspect fluid related. PO intakes improving, consuming 75-100% of most meals. Noted strawberry glucerna shakes ordered BID. Pt remains low nutrition risk with current interventions in place.
[2020-02-11 15:24] VITALS: BP 99/60
--- NOTE | 2020-02-11 16:24 | NUR ---
CONT TO PROGRESS TOWARDS DISCHARGE GOALS. HE IS VERY ETHUSIASTIC TO WORK WITH THERAPY. NO COMPLAIN OF PAIN. PLEASANT WITH CARE. WILL CONT WITH PLAN OF CARE.
[2020-02-11 19:59] VITALS: BP 100/66
--- NOTE | 2020-02-11 22:43 | NUR ---
REPORT CALLED TO RHONDA ANNE IN CCU. WILL TRANSPORT PT VIA BED WITH ASSISTANCE OF RT.
[2020-02-12] VITALS (7 sets, daily range): BP systolic 92–120; BP diastolic 62–72
[2020-02-12 06:21] LABS: HEMATOCRIT 34.9 % (42.0-52.0); HEMOGLOBIN 11.8 gm/dL (14.0-18.0); MCH 32.4 pg (26.0-34.0); MCHC 33.8 g/dL (28.0-37.0); MCV 95.8 fL (80.0-100.0); RBC 3.64 mil/uL (4.50-6.00); RDW 13.9 % (10.5-14.5); WBC 5.7 thou/uL (4.0-11.0)
[2020-02-12 06:26] LABS: CALCIUM 8.5 mg/dL (8.5-10.1); CREATININE 0.6 mg/dL (0.7-1.3); POTASSIUM 3.8 mmol/L (3.5-5.1)
--- NOTE | 2020-02-12 12:52 | NUR ---
YUNIOR reviewed chart and spoke with attending physician. Enhanced Isolation precautions have been discontinued. Pt transferred to from 3W. Pt remains on optiflow at 55L. Pt is on IV steroids. YUNIOR faxed clinical/therapy updates to [facility] for review. Notified [facility] liaison of pt's room move. YUNIOR requested [employer] follow up with pt's regarding possible disability application. Pt's cell phone number provided to [employer]. YUNIOR is following to assist as needed with discharge planning.
--- NOTE | 2020-02-12 19:27 | NUR ---
PT CARE ASSUMED AT 0700. ASSESSMENTS CHARTED. MEDICATIONS CHARTED. PICC 3L AZAR. OPTIFLOW 50 LPM 90%. URINAL/BSC. SINUS TACHYCARDIA. UP AD LINDA. WOULD LIKE TO D/C TO LTAC BUT PT NEEDS TO BE NO MORE THAN 40%.
--- NOTE | 2020-02-13 04:45 | NUR ---
PT ALERT AND ORIENTED. VITALS STABLE, DENIES CHEST PAIN , NAUSEA OR VOMITING. PT C/O PERSISTENT COUGH, AND BACK PAIN. TESSALON AND HYDROCODONE GIVEN. PT ENCOURAGED TO USE HIS IS. REMAINS SR ON THE MONITOR. WILL CONTINUE TO FOLLOW POC.
[2020-02-13 05:15] VITALS: BP 94/64
[2020-02-13 08:00] VITALS: BP 88/54
--- NOTE | 2020-02-13 09:25 | NUR ---
YUNIOR reviewed chart and spoke with attending physician. Pt is on 35L optiflow. Pt is progressing towards goals for discharge to LTAC. YUNIOR was notified by [facility] liaison that insurance may only cover a portion of pt's LTAC stay. Unsure of coverage, as the insurance was unable to provide specific benefits to [facility]. YUNIOR notified UR RN, who left message for insurance. YUNIOR spoke with pt's via phone to provide update and discuss insurance. Pt's states she will contact the insurance to ask for specific info regarding benefits/coverage. YUNIOR is following to assist as needed with discharge planning.
[2020-02-13 11:30] VITALS: BP 100/66
[2020-02-13 16:30] VITALS: BP 112/74
[2020-02-13 19:57] VITALS: BP 108/68
[2020-02-14 03:59] VITALS: BP 92/62
--- NOTE | 2020-02-14 04:35 | NUR ---
ASSUMED CARE 1900. PT ALERT AND ORIENTED. VITALS STABLE. PT DENIES CHEST PAIN, NAUSEA, VOMITING OR DIARRHEA. PT PERSISTENTLY GET SOB WITH MINIMAL ACTIVITY, PT CURRENTLY ON 35L WITH 50% FIO2. PERSISTENT COUGH, ALLEVIATED WITH COUGH SYRUP. WILL CONTINUE TO MONITOR.
[2020-02-14 08:00] VITALS: BP 101/68
--- NOTE | 2020-02-14 11:33 | NUR ---
YUNIOR notified by [facility] liaison that pt's insurance is in-network with [facility]. Pt has an out of pocket cost of $2000/day not to exceed $6000/admission. YUNIOR updated pt's this morning via phone. YUNIOR contacted [facility] liaison to request another insurance verification, as they are listed as in-network. YUNIOR provided additional contact info to Dianna. SW received call back from [facility] stating they are in-network and received the same benefits as listed above. Dianna [facility] to start working on insurance authorization today. YUNIOR updated attending physician, who states pt is medically stable for discharge. YUNIOR updated pt's regarding [facility] acceptance and working on authorization. Pt's verbalized understanding and is agreeable with discharge plan. YUNIOR is following to assist as needed with discharge planning.
[2020-02-14 12:00] VITALS: BP 91/61
[2020-02-14 16:00] VITALS: BP 97/61
[2020-02-14 19:56] VITALS: BP 102/60
--- NOTE | 2020-02-15 03:52 | NUR ---
SLEEPING WITHOUT COMPLAINTS. DENIES NEED FOR PAIN MEDICATION OR COUGH MEDS AT THIS TIME. STATES WILL TAKE IN AM. TOLERATING HIFLO O2 AT 50L СВЕТЛАНА AND 60% FIO2. WORKING ON GOALS AND PLAN OF CARE FOR NOC. PROGRESSING SLOWLY TOWARDS DISCHARGE TO REHAB. CONTINUE TO ASSES CLOSELY.
[2020-02-15 05:23] VITALS: BP 91/62
[2020-02-15 08:07] VITALS: BP 87/56
--- NOTE | 2020-02-15 09:57 | NUR ---
YUNIOR reviewed chart and spoke with attending physicain. Pt remains on optiflow at 50-60L. Pt not medically stable for discharge to [facility]. [facility] is not able to accept admissions over the weekend and will need to get a new authorization from pt's insurance. No weekend discharge planned. YUNIOR updated [facility] liaison. Will fax updates and follow up with Dianna on Tuesday. YUNIOR is following to assist as needed with discharge planning.
[2020-02-15 11:46] VITALS: BP 90/59
[2020-02-15 16:55] VITALS: BP 96/63
[2020-02-15 19:30] VITALS: BP 92/62
--- NOTE | 2020-02-15 20:09 | NUR ---
RECEIVED PT'S CARE AROUND 0718; PT. ON BED; ALERT; DURING AM ASSESSMENT PT. AOX4; NO C/O PAIN; SBP ON THE 80s; NO C/O DIZZINESS OR HEADACHE; PHYSICIAN NOTIFIED; NO NEW ORDERS; MONITORING; EDUCATED ABOUT PAIN MEDICATION AND BP; ST. UNDERSTANDING; WORKED WITH PT. PER REPORT PT. DESAT ON THE 70% WITH AMBULATION; TAKES SOME TIME TO RECOVER; EDUCATED ABOUT FALL PRECAUTIONS; ST. UNDERSTANDING; PRN COUGH MEDICATION GIVEN DURING THE EVENING; SR-ST ON THE MONITOR; ASSESSMENT CHARGED; FOLLOWING POC; PASSED ON REPORT;
[2020-02-16 03:40] VITALS: BP 90/61
--- NOTE | 2020-02-16 07:29 | NUR ---
PATIENT SLEPT THROUGH MOST OF THE NIGHT. ON HIGH FLOW NC; 55% FIO2, 45L. USING BSC X1 ASSIST. A&OX4. NO COMPLAINTS OF PAIN OR SOA. SR ON THE MONITOR. COUGH MEDICATION GIVEN PER ORDERS. PROGRESSING SLOWLY TOWARDS DISCHARGE. CONTINUE TO ASSESS ACCORDING TO POC.
[2020-02-16 07:59] VITALS: BP 94/61
[2020-02-16 12:00] VITALS: BP 95/63
[2020-02-16 12:05] LABS: HEMATOCRIT 36.4 % (42.0-52.0); HEMOGLOBIN 12.4 gm/dL (14.0-18.0); MCH 32.5 pg (26.0-34.0); MCHC 34.2 g/dL (28.0-37.0); RBC 3.83 mil/uL (4.50-6.00); RDW 13.8 % (10.5-14.5); WBC 5.5 thou/uL (4.0-11.0)
--- NOTE | 2020-02-16 12:18 | NUR ---
VASCULAR ACCESS NURSE ROUNDING. PICC WNL, ONLY ON AN IVP MED. CONSIDER PERIPHERAL IV ACCESS AND REMOVAL OF PICC TO DECREASE RISK OF A BLOOD STREAM INFECTION. PICC DWELL IS AT 23 DAYS
[2020-02-16 12:23] LABS: CALCIUM 9.3 mg/dL (8.5-10.1); CREATININE 0.7 mg/dL (0.7-1.3); POTASSIUM 3.9 mmol/L (3.5-5.1)
[2020-02-16 16:00] VITALS: BP 141/60
[2020-02-16 19:00] VITALS: BP 102/61
--- NOTE | 2020-02-16 20:40 | NUR ---
ASSUMED CARE PT SHIFT CHANGE. ASSESSMENTS CHARTED.MEDS GIVEN PER APR. PT ALERT AND ORIENTED.VSS. DENIES PAIN. O2 SATS WNL ON OPTIFLOW 55% 45L. PT UP TO COMMODE SBA DESATS WITH ACTIVITY RECOVERS WITH REST. APPETITE ADEQUATE. C/O COUGH MANAGED WITH MEDS. LARGE BM THIS SHIFT, UOP ADEQUATE. IS AT BEDSIDE AND PT COMPLIANT WITH USE. PLAN FOR [facility] ONCE OXYGEN TITRATED DOWN TO ACCEPTED RATE. PT SITTING UP IN BED. DENIES NEEDS/CONCERNS. CONTINUING TO MONITOR AND FOLLOW POC. REPORT PASSED ONTO NOC RN.
[2020-02-17 04:00] VITALS: BP 99/64
--- NOTE | 2020-02-17 04:34 | NUR ---
PATIENT SLEPT THROUGH SOME OF THE NIGHT. A&OX4. FALL PRECAUTIONS IN PLACE. PT ON OPTIFLOW; 50% & 40L, 02 SATS WNL. VSS. PT DESATS WITH ACTIVITY AND TAKES TIME TO RECOVER. PT DENIES BEING IN ANY DISTRESS OR PAIN. MEDS GIVEN PER EMAR AND ORDERS. ASSESSMENTS AT CHARTED. PLAN TO DISCHARGE TO [facility] ONCE OXYGEN PERAMETERS ARE MET. CONTINUING TO ASSESS CLOSELY ACCORDING TO POC.
[2020-02-17 12:00] VITALS: BP 88/57
[2020-02-17 16:00] VITALS: BP 95/62
--- NOTE | 2020-02-17 18:04 | NUR ---
IT WAS REPORTED THAT PT MAY DISCHARGE TO [facility] IN THE MORNING IF FIO2 WAS <40%, RT WORKED WITH PT TO TITRATE THE FIO2 LEVEL AND PT IS CURRENTLY AT 35% AT THIS TIME. PT'S HR WAS SEEN TO SPIKE MULTIPLE TIMES DURING THE SHIFT, WHEN RN ASSESSED, PT WAS IN MIDDLE OF TALKING/ACTIVITY OR ANXIOUS. MEDICATION WAS PROVIDED PER ORDER. PT'S SIGNIFICANT OTHER CAME, HELPED PT GROOM/SHAVE. RN GAVE EDUCATION REGARDING THE USE OF INCENTIVE SPIROMETRY, PT WAS TAUGHT TO NOT WORRY ABOUT VOLUME BUT RATHER FOCUS ON KEEPING THE INSPIRATION LEVEL AT BEST. PT VERBALIED UNDERSTANDING. AND HAS BEEN PRACTICING INCENTIVE SPIROMETRY SINCE.
[2020-02-17 19:50] VITALS: BP 106/70
--- NOTE | 2020-02-18 04:49 | NUR ---
PT IS ALERT AND ORIENTED X4. LUNGS ARE COARSE WITH A COUGH NOTED. SINUS TACH TO SINUS RHYTHM ON THE MONIOR. DENIES ANY PAIN ISSUIES. REMAINS ON THE OPTI FLOW TODAY AT FLOW at 35% and FIO2 OF 50% CALL LIGHT WITHIN REACH IF NEEEDS CARE. ONGOING CARE AND MONITORING AND RESPIRTORY TREATMENTS WITH NURSING CARE
[2020-02-18 05:27] VITALS: BP 96/65
[2020-02-18 07:30] VITALS: BP 108/66
[2020-02-18] MEDS ORDERED: PROVENTIL HFA6.7 G1 INH (08:33)
[2020-02-18] MEDS ORDERED: IPRAT-ALBUT 0.5-3 ML INH (08:33)
[2020-02-18] MEDS ORDERED: TRAZODONE HCL50 MG PO (08:34)
[2020-02-18] MEDS ORDERED: CODEINE SULFATE30 MG PO (08:34)
[2020-02-18] MEDS ORDERED: ALPRAZOLAM 0.0.25 M1 PO (08:34)
[2020-02-18] MEDS ORDERED: HYDROCODON-ACE1 EAC7 PO (08:34)
[2020-02-18] MEDS ORDERED: ENOXAPARIN40 MG/0.1 SUBQ (08:34)
[2020-02-18] MEDS ORDERED: MIRALAX17 GM PO (08:35)
[2020-02-18] MEDS ORDERED: ZINC SULFATE 2220 MG PO (08:35)
[2020-02-18] MEDS ORDERED: GUAIFENESIN DM S5 ML PO (08:35)
[2020-02-18] MEDS ORDERED: BENZONATATE100 MG PO (08:35)
[2020-02-18] MEDS ORDERED: ONDANSETRON4 MG/2 M1 IV PUSH (08:37)
[2020-02-18] MEDS ORDERED: VITAMIN B-1100 M2 PO (08:39)
[2020-02-18] MEDS ORDERED: MELATONIN5 M1 PO (08:39)
[2020-02-18] MEDS ORDERED: ACEROLA C500 MG PO (08:39)
[2020-02-18] MEDS ORDERED: VITAMIN D325 MC1 PO (08:39)
[2020-02-18] MEDS ORDERED: PEPCID20 MG PO (08:39)
[2020-02-18 11:30] VITALS: BP 97/68
--- NOTE | 2020-02-18 13:59 | NUR ---
YUNIOR reviewed chart and spoke with attending physician. Pt is medically stable for discharge to [facility]. Pt's O2 is at 35L. YUNIOR faxed clinical updates and discharge orders/summary to [facility]. Will need insurance authorization. YUNIOR discussed with [facility] liaison. Awaiting input from [facility] regarding bed availability and insurance authorization. YUNIOR updated pt's via phone. Pt's is agreeable with discharge plan. Chart copy requested. YUNIOR is following to assist as needed with discharge planning.
[2020-02-18 16:00] VITALS: BP 100/63
[2020-02-18 20:47] VITALS: BP 97/65
[2020-02-19 04:45] VITALS: BP 100/66
--- NOTE | 2020-02-19 07:54 | NUR ---
ASSUME CARE 1900. PT/VITALS STABLE. DENIES ANY PAIN. MODERATE TOLERANCE TO ACTIVITY. PT ON OPTIFLOW AT 35% OXYGEN. SATS ADEQUATELY WITH REST. ASSESSMENT CHARTED. PROGRESSING WELL WITH POC. NO DISTRESS NOTED THROUGH THE NIGHT. ADEQUATE REST. SR ON MONITOR. PLAN IS POSSIBLE DISCHARGE TO LTACH TODAY. INSURANCE APPROPVED ALREADY, WAITING ON BED. WILL CONTINUE TO MONITOR AND FOLLOW WITH POC
[2020-02-19 08:17] VITALS: BP 100/68
[2020-02-19 12:04] VITALS: BP 98/63
--- NOTE | 2020-02-19 13:16 | NUR ---
DISCHARGE NOTE: YUNIOR reviewed chart and spoke with nursing and attending physician. Pt remains medically stable for discharge to [facility]. YUNIOR contacted [facility] liaison, who states they are able to accept pt today. Request for 1700 transportation. YUNIOR faxed updated discharge orders/summary to [facility] and confirmed info was received. YUNIOR arranged ambulance through [facility] for 1700. YUNIOR notified pt's via phone of discharge and transportation time. YUNIOR met with pt at [facility] to provide update and discuss discharge plan. Pt states he is nervous about leaving the hospital, but knows he still needs time to recover and gain his strength back. Pt agreeable with discharge. Chart copy completed. Nursing to call report to [phone]. YUNIOR confirmed discharge plan with [facility] liaison and updated attending physician. No additional SW needs identified at this time, but is available to assist should needs arise.
--- NOTE | 2020-02-19 15:21 | NUR ---
RECEIVED PT'S CARE AROUND 0730; PT. ON BED; RESTING WITH EYES CLOSED; SLEEP INTERRUPTED; ALERT; SR ON THE MONITOR; DURING AM ASSESSMENT AOX4; NO C/O PAIN; SOB WITH EXERTION; 02 SAT YO LATE 70s WHILE TRYING TO GET UP TO BED SIDE COMMODE; REQUESTED PRN ANTI-ANXIETY MEDICATION; MEDICATION GIVEN; PER CR[facility] TRANSPORTATION ARRANGE TO 1700; PT. NOTIFIED; EDUCATED ABOUT D/C PROCESS; RECEIVED CALL FROM TAMEL[facility] IN ORDER TO KNOW IV ACCESS; PT. HAS PICC LINE; PRN ZOFRAN ON D/C ORDERS; PHYSICIAN NOTIFIED; ORDERS RECEIVED; [facility] NOTIFIED PER PHYSICIAN D/C PICC LINE AT D/C; [facility] NOTIFIED; STAaliyah UNDERSTANDING; PRN ACETAMINOPHEN GIVEN DURING THE AFTERNOON; REQUESTED PRN ANIT-ANXIETY MEDICATION BEFORE TRANSFERING; PETROLOGY TEACHER [facility]; ST ON THE MONITOR WITH EXERTION; ASSESSMENT CHARGED; FOLLOWING POC; WILL WORK ON D/C PAPERS;
[2020-02-19 15:26] VITALS: BP 92/55
== END 2020-02-19 17:35 | DRG 871 ==
LOC: ER 00:22 → 3W 02:52 → ER 04:38 → ICU 01-23 16:10 → 3W 01-30 20:05 → 2N 02-12 00:07
PROVIDERS: Emergency Medicine; Internal Medicine Pulmonary Disease; Specialist; ADMIT Family Medicine; ATTEND Family Medicine
PROC: 5A0945A Assistance with Respiratory Ventilation, 24-96 Consecutive Hours, High Flow/Velocity Cannula (ICD-10-PCS; principal; 2020-01-18)
PROC: XW033E5 Introduction of Remdesivir Anti-infective into Peripheral Vein, Percutaneous Approach, New Technology Group 5 (ICD-10-PCS; principal; 2020-01-18)
PROC: XW13325 Transfusion of Convalescent Plasma (Nonautologous) into Peripheral Vein, Percutaneous Approach, New Technology Group 5 (ICD-10-PCS; 2020-01-19)
PROC: 5A09357 Assistance with Respiratory Ventilation, Less than 24 Consecutive Hours, Continuous Positive Airway Pressure (ICD-10-PCS; 2020-01-19)
PROC: 5A09357 Assistance with Respiratory Ventilation, Less than 24 Consecutive Hours, Continuous Positive Airway Pressure (ICD-10-PCS; 2020-01-20)
PROC: 5A09357 Assistance with Respiratory Ventilation, Less than 24 Consecutive Hours, Continuous Positive Airway Pressure (ICD-10-PCS; 2020-01-21)
PROC: 5A09357 Assistance with Respiratory Ventilation, Less than 24 Consecutive Hours, Continuous Positive Airway Pressure (ICD-10-PCS; 2020-01-22)
PROC: 5A09357 Assistance with Respiratory Ventilation, Less than 24 Consecutive Hours, Continuous Positive Airway Pressure (ICD-10-PCS; 2020-01-23)
PROC: B548ZZA Ultrasonography of Superior Vena Cava, Guidance (ICD-10-PCS; 2020-01-24)
PROC: 5A09357 Assistance with Respiratory Ventilation, Less than 24 Consecutive Hours, Continuous Positive Airway Pressure (ICD-10-PCS; 2020-01-24)
PROC: 02HV33Z Insertion of Infusion Device into Superior Vena Cava, Percutaneous Approach (ICD-10-PCS; 2020-01-24)
PROC: 5A0935A Assistance with Respiratory Ventilation, Less than 24 Consecutive Hours, High Flow/Velocity Cannula (ICD-10-PCS; 2020-01-24)
PROC: 5A09357 Assistance with Respiratory Ventilation, Less than 24 Consecutive Hours, Continuous Positive Airway Pressure (ICD-10-PCS; 2020-01-25)
PROC: 5A0935A Assistance with Respiratory Ventilation, Less than 24 Consecutive Hours, High Flow/Velocity Cannula (ICD-10-PCS; 2020-01-25)
PROC: 5A09357 Assistance with Respiratory Ventilation, Less than 24 Consecutive Hours, Continuous Positive Airway Pressure (ICD-10-PCS; 2020-01-26)
PROC: 5A09357 Assistance with Respiratory Ventilation, Less than 24 Consecutive Hours, Continuous Positive Airway Pressure (ICD-10-PCS; 2020-01-27)
PROC: 5A0955A Assistance with Respiratory Ventilation, Greater than 96 Consecutive Hours, High Flow/Velocity Cannula (ICD-10-PCS; 2020-01-27)
PROC: 5A09357 Assistance with Respiratory Ventilation, Less than 24 Consecutive Hours, Continuous Positive Airway Pressure (ICD-10-PCS; 2020-02-04)
PROC: 5A09357 Assistance with Respiratory Ventilation, Less than 24 Consecutive Hours, Continuous Positive Airway Pressure (ICD-10-PCS; 2020-02-05)
PROC: 5A0955A Assistance with Respiratory Ventilation, Greater than 96 Consecutive Hours, High Flow/Velocity Cannula (ICD-10-PCS; 2020-02-05)
DX: A41.9 Sepsis, unspecified organism (principal); U07.1 COVID-19; J12.82 Pneumonia due to coronavirus disease 2019; J80 Acute respiratory distress syndrome; N17.9 Acute kidney failure, unspecified; J93.9 Pneumothorax, unspecified; R65.20 Severe sepsis without septic shock; E03.9 Hypothyroidism, unspecified; Z79.899 Other long term (current) drug therapy
CPT/HCPCS: 10078; 10081; 10203; 10879; 27000

== ENCOUNTER → 2020-06-24 | Outpatient (CLI) | payer OTHER ==
[~2020-06-24] MED LIST changes: +ACEROLA C500 MG PO; +ALPRAZOLAM 0.0.25 M1 PO; +BENZONATATE100 MG PO; +CODEINE SULFATE30 MG PO; +ENOXAPARIN40 MG/0.1 SUBQ; +GUAIFENESIN DM S5 ML PO; +HYDROCODON-ACE1 EAC7 PO; +IPRAT-ALBUT 0.5-3 ML INH; +MELATONIN5 M1 PO; +MIRALAX17 GM PO; +ONDANSETRON4 MG/2 M1 IV PUSH; +PEPCID20 MG PO; +PROVENTIL HFA6.7 G1 INH; +TRAZODONE HCL50 MG PO; +VITAMIN B-1100 M2 PO; +VITAMIN D325 MC1 PO; +ZINC SULFATE 2220 MG PO
== END ==
LOC: CAT 11:32
PROVIDERS: ATTEND Internal Medicine Cardiovascular Disease
DX: Z13.6 Encounter for screening for cardiovascular disorders (principal); I25.10 Atherosclerotic heart disease of native coronary artery without angina pectoris; E78.00 Pure hypercholesterolemia, unspecified

== ENCOUNTER → 2020-07-01 | Outpatient (CLI) | payer OTHER | LOC: SJCVCIMAG 08:43 | PROVIDERS: ATTEND Internal Medicine Cardiovascular Disease | DX: I07.1 Rheumatic tricuspid insufficiency (principal); R06.00 Dyspnea, unspecified; R53.83 Other fatigue; R00.1 Bradycardia, unspecified; E78.5 Hyperlipidemia, unspecified; Z79.82 Long term (current) use of aspirin; Z79.899 Other long term (current) drug therapy ==

== ENCOUNTER → 2020-07-03 | Outpatient (CLI) | payer OTHER | LOC: RAD 13:20 | PROVIDERS: ATTEND Pediatrics | DX: J98.4 Other disorders of lung (principal); J96.11 Chronic respiratory failure with hypoxia; U07.1 COVID-19 ==